=== PATIENT | female | born 1935 | race Caucasian/White ===

== ENCOUNTER → 2018-01-07 12:56 | Outpatient (CLI) | payer MEDICARE, OTHER, SELFPAY ==
[2018-01-07 13:37] LABS: Hematocrit 36.3 % (37-47); Hemoglobin 11.8 g/dl (12.0-15.0); Mean Corp Hgb Conc 32.5 g/gl (32-36); Mean Corpuscular Hgb 30.7 pg (27.0-32.0); Mean Corpuscular Volume 94.5 fL (81-99); Mean Platelet Vol. 10.6 fl (6.2-12.0); Platelet Count 247 K/mm3 (150-450); RBC Distribution Width CV 14.5 % (11.6-14.6); RBC Distribution Width SD 48.3 fl (35.1-43.9); Red Blood Count 3.84 M/mm3 (4.2-5.4); White Blood Count 10.6 K/mm3 (4.4-11.0)
[2018-01-07 13:46] LABS: Scan Indicated on CBC? Y/N NO
[2018-01-07 13:58] LABS: Albumin, Serum 3.3 g/dL (3.2-5.0); BUN 54 mg/dL (7-18); Calcium,Total 8.5 mg/dL (8.5-10.1); Chloride 101 mmol/L (98-107); Creatinine, Serum 2.16 mg/dL (0.55-1.02); EST Glomerular Filtration Rate 23 mL/min (>60); Est Glom Filt Rate - Afr Amer 28 mL/min (>60); Glucose 121 mg/dL (74-106); Magnesium 2.1 mg/dL (1.6-2.6); Phosphorus 3.4 mg/dL (2.5-4.9); Potassium 4.3 mmol/L (3.5-5.1); Sodium Level 135 mmol/L (136-145)
[2018-01-07 14:09] LABS: Vitamin D,25 Hydroxy 33.3 ng/mL (29.95-100.01)
[2018-01-07 14:14] LABS: Protein, Urine (Random) 548.6 mg/dL (<11.9); Protein:Creat Ratio 4649 mg/g CRE (0-200)
[2018-01-07 14:21] LABS: PTHIN 90.8 pg/mL (18.4-80.1)
== END ==
PROVIDERS: Family Provider Internal Medicine; PCP Internal Medicine; Visit Provider Internal Medicine Nephrology
DX: N18.3 Chronic kidney disease, stage 3 (moderate) (principal); N25.81 Secondary hyperparathyroidism of renal origin; D63.1 Anemia in chronic kidney disease; E11.9 Type 2 diabetes mellitus without complications; I12.9 Hypertensive chronic kidney disease with stage 1 through stage 4 chronic kidney disease, or unspecified chronic kidney disease
CPT/HCPCS: 36415; 80069; 82306; 82570; 83036; 83735; 83970; 84156; 85027

== ENCOUNTER 2018-01-28 11:51 | Day surgery (SDC) | payer MEDICARE, OTHER, SELFPAY ==
[2018-01-28] VITALS (7 sets, daily range): BP systolic 103–157; BP diastolic 70–86; PULSE 79–82; RESP 16–20; TEMP 36.6–36.9; O2SAT 94–98; BMI 34.5
[2018-01-28 12:50] LABS: Bedside Glucose 127 mg/dL (70-110)
--- NOTE | 2018-01-28 13:00 | RAD_ITS ---
STUDY: X-RAY - LUMBAR SPINE REASON FOR EXAM: Female, 82 years old. Transforaminal block. TECHNIQUE: 4 cone down intraoperative view(s) of the lumbar spine were obtained. COMPARISON: None FINDINGS: Imaging provided for right L4-S1 transforaminal block. RAD/L/S Spine Min 4 Views IMPRESSION: Imaging provided for right L4-S1 transforaminal block. Electronically Signed: Gonzalez Duckworth MD at 15:34 EDT Tel [phone], Service support ,
[2018-01-28] MEDS: MethylPREDNISolone Acetate 80 MG/ML Vial (13:06)
[2018-01-28] MEDS: Bupivacaine 0.25% 30 ML Vial (13:06)
--- NOTE | 2018-01-28 14:46 | OP.PCM_ITS ---
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 Description of Surgical Findings:: PROCEDURE: Right-sided lumbar transforaminal epidural steroid injection L4, L5, S1 PREOPERATIVE DIAGNOSIS: Lumbosacral radiculopathy, lumbosacral degenerative disc disease, lumbosacral spinal stenosis POSTOPERATIVE DIAGNOSIS: Lumbosacral radiculopathy, lumbosacral degenerative disc disease, lumbosacral spinal stenosis ANESTHESIA: MAC COMPLICATIONS: None BLOOD LOSS: Minimal PROCEDURE IN DETAIL: History and physical today was reviewed. Risks and benefits of the procedure were explained. The patient understood, agreed to our procedure, and informed consent was obtained. IV inserted per routine protocol. The patient was taken to the operating room, placed in a prone position with a pillow positioned underneath the abdomen. The right side of his lower back was prepped and draped in a sterile fashion using iodine x3. Under fluoroscopy guidance, on AP view, L4 through S1 vertebral bodies were visualized. Skin and subcutaneous tissues were anesthetized with approximately 5 mL of 1% lidocaine using a 25-gauge regular needle. Under direct visualization with fluoroscopy at approximately 35? angle starting on the right L4 ending on the right L5 using a 22-gauge 3-1/ 2 inch spinal needle the needle was advanced via the skin the tip of the needle was maneuvered and directed towards the inferior medial gutter of the transverse process at the superiormost aspect of the neuroforamen once the tip of the needle was at the vicinity of the foramen after negative aspiration for blood or CSF a total of 1 cc of contrast were injected in divided doses between both levels to confirm correct placement of the needle as well as medial spread the confirmation was obtained on AP as well as lateral view after repeated negative aspiration and confirmation a total of 5 cc of preservative-free 0.25% Marcaine with 80 mg of Depo-Medrol were injected in divided doses between both levels. The needles were then removed intact. The patient experienced no signs or symptoms intrathecal, intravascular injection. The patient experienced no paraesthesia. The procedure was completed without any apparent difficult, any complication. The patient appeared to tolerate well. ASSESSMENT AND PLAN: This is a 82-year-old female with lumbosacral radiculopathy, lumbosacral degenerative disc disease, lumbosacral spinal stenosis status post right-sided lumbar transforaminal epidural steroid injection L4-5, L5-S1, the patient will continue her current medications. The patient will follow in approximately 2 weeks for possible repeat of the procedure if indicated.
== END 2018-01-28 14:15 | disposition home or self-care (01) ==
LOC: SDC 11:51 → AC 11:53
PROVIDERS: Family Provider Internal Medicine; PCP Internal Medicine; Visit Provider Anesthesiology Pain Medicine
PROC: 3E0S3BZ Introduction of Anesthetic Agent into Epidural Space, Percutaneous Approach (ICD-10-PCS; CPT 64493; principal; 2018-01-28 13:00)
DX: M51.37 Other intervertebral disc degeneration, lumbosacral region (principal); M54.17 Radiculopathy, lumbosacral region; M48.07 Spinal stenosis, lumbosacral region; M47.817 Spondylosis without myelopathy or radiculopathy, lumbosacral region; M46.96 Unspecified inflammatory spondylopathy, lumbar region; M79.1 Myalgia; I10 Essential (primary) hypertension; G47.33 Obstructive sleep apnea (adult) (pediatric); E11.9 Type 2 diabetes mellitus without complications; E78.00 Pure hypercholesterolemia, unspecified; E55.9 Vitamin D deficiency, unspecified; Z79.891 Long term (current) use of opiate analgesic
CPT/HCPCS: 01935; 64493; 64494; 64483; 72110; 82962; J7120